=== PATIENT | female | born 1940 | race Caucasian/White ===

== ENCOUNTER 2021-03-04 15:23 | Inpatient (IN) | payer MEDICARE, MEDICAID ==
[2021-03-04 16:02] LABS: #Eosinphils 0.2 10x3/uL (0.0-0.5); #Monocytes 0.4 10x3/uL (0.0-1.1); #Neutrophils 4.4 10x3/uL (1.5-8.4); %Basophils 0.3 % (0.0-2.0); %Eosinophils 3.1 % (0.0-6.0); %Lymphocytes 25.3 % (18.0-47.0); %Monocytes 5.5 % (0.0-10.0); %Neutrophils 65.5 % (40.0-75.0); Hemoglobin 11.6 g/dL (12.0-15.5); Mean Corpuscular HGB CONC 30.9 g/dL (32.0-36.0); Mean Corpuscular Hemoglobin 26.3 pg (27.0-33.0); Mean Platelet Volume 9.1 fl (7.4-10.4); Platelet Count 228 10x3/uL (150-450); RBC Distribution Width 16.7 % (11.5-14.5); Red Blood Cell (RBC) Count 4.41 10x6/uL (3.90-5.03); White Blood Cell (WBC) Count 6.7 10x3/uL (3.5-10.5)
[2021-03-04 16:11] LABS: PTT 25.4 sec (22.0-33.0); Prothrombin Time 11.2 sec (9.5-12.1)
[2021-03-04 16:12] LABS: Anion Gap 16 mmol/L (10-20); BUN (Urea Nitrogen) 13 mg/dL (9.8-20.1); Calc. Creatinine Clearance 0 mL/min (70-130); Calcium 9.3 mg/dL (7.8-10.44); Carbon Dioxide 23 mmol/L (23-31); Chloride 107 mmol/L (98-107); Glucose 88 mg/dL (83-110); Potassium 3.7 mmol/L (3.5-5.1); Sodium 142 mmol/L (136-145)
[2021-03-04] MEDS ORDERED: Ondansetron PF 4 MG/2 ML Vial IVP PRN (21:40)
[2021-03-04] MEDS ORDERED: Calcium Carbonate 500 MG ChewTAB PO PRN ×2 (21:40→21:41)
[2021-03-04] MEDS ORDERED: Guaifenesin DM 100-10/5 ML UDCUP PO PRN (21:40)
[2021-03-04] MEDS ORDERED: Senokot S 8.6-50 MG TAB PO PRN (21:40)
[2021-03-04] MEDS ORDERED: hydrALAZINE 20 MG/ML VIAL SLOW IVP PRN (21:44)
[2021-03-04] MEDS ORDERED: HYDROcodone/Acetaminophen 5/325 mg Tablet ONE (23:23)
[2021-03-04] MEDS ORDERED: Nebivolol HCl 5 MG TAB PO SCH (23:30)
[2021-03-05] MEDS: Ipratropium Bromide 2.5 ml Neb NEB SCH ×2 (01:00→07:37)
[2021-03-05] MEDS: Acetaminophen 325 MG TAB PO PRN ×2 (01:09→19:59)
[2021-03-05] MEDS ORDERED: Pregabalin 50 MG CAP PO SCH ×2 (01:45→09:00)
[2021-03-05 02:07] LABS: Bilirubin Neg (Negative); Blood, Urine 150 (Negative); Clarity Slightly Cloudy (Clear); Glucose, Urine (Dipstick) Normal (Negative); Ketone, Urine Negative (Negative); Leukocyte 500 (Negative); Nitrite Positive (Negative); Protein, Urine (Dipstick) 100 mg/dl (Neg-Trace); Urobilinogen Normal mg/dL (Less than 2)
[2021-03-05 02:14] LABS: Bacteria/HPF 4+ HPF (None Seen); RBC/HPF 0-3 HPF (0-3); Squamous Epithelial 0-3 HPF (0-3); WBC/HPF 21-50 HPF (0-3)
[2021-03-05 02:19] VITALS: BMI 26.8
[2021-03-05] MEDS: HYDROcodone/Acetaminophen 5/325 mg Tablet PO PRN ×2 (02:56→09:33)
[2021-03-05 04:25] LABS: SARS-CoV-2 NAA Rapid Test Not Detected (NotDetected)
[2021-03-05] MEDS: Levothyroxine Sodium 125 MCG TAB PO SCH (05:51)
[2021-03-05] MEDS ORDERED: RANOLAZINE 1000 MG PO SCH (09:00)
[2021-03-05] MEDS: Clopidogrel Bisulfate 75 MG TAB PO SCH (09:31)
[2021-03-05] MEDS: Aspirin 81 mg Enteric Coated Tablet PO SCH (09:31)
[2021-03-05] MEDS: Losartan 25 MG TAB PO SCH (09:32)
[2021-03-05] MEDS: Calcium Carbonate 600 MG + Vit D TAB PO SCH (09:32)
[2021-03-05] MEDS: Enoxaparin Sodium 40 MG/0.4 ML SYRINGE SC SCH (09:33)
[2021-03-05] MEDS: Nebivolol HCl 5 MG TAB PO SCH (09:33)
[2021-03-05] MEDS: Nystatin Powder 15 GM BOT TOP SCH ×2 (10:50→21:00)
[2021-03-05] MEDS: Pregabalin 50 MG CAP PO SCH (19:58)
[2021-03-05] MEDS: Atorvastatin Calcium 40 MG TAB PO SCH (19:59)
[2021-03-06 04:33] LABS: #Monocytes 0.3 10x3/uL (0.0-1.1); #Neutrophils 12.7 10x3/uL (1.5-8.4); %Basophils 0.2 % (0.0-2.0); %Eosinophils 0.1 % (0.0-6.0); %Neutrophils 92.2 % (40.0-75.0); Hemoglobin 11.1 g/dL (12.0-15.5); Mean Corpuscular HGB CONC 30.7 g/dL (32.0-36.0); Mean Corpuscular Hemoglobin 26.6 pg (27.0-33.0); Mean Corpuscular Volume 86.6 fl (81.6-98.3); Mean Platelet Volume 9.7 fl (7.4-10.4); Platelet Count 155 10x3/uL (150-450); RBC Distribution Width 17.6 % (11.5-14.5); Red Blood Cell (RBC) Count 4.18 10x6/uL (3.90-5.03); White Blood Cell (WBC) Count 13.7 10x3/uL (3.5-10.5)
[2021-03-06 04:54] LABS: Anion Gap 19 mmol/L (10-20); BUN (Urea Nitrogen) 26 mg/dL (9.8-20.1); Calc. Creatinine Clearance 28 mL/min (70-130); Calcium 8.8 mg/dL (7.8-10.44); Carbon Dioxide 21 mmol/L (23-31); Chloride 104 mmol/L (98-107); Glucose 94 mg/dL (83-110); Potassium 4.6 mmol/L (3.5-5.1); Sodium 139 mmol/L (136-145)
[2021-03-06] MEDS: Acetaminophen 325 MG TAB PO PRN (05:53)
[2021-03-06] MEDS: Levothyroxine Sodium 125 MCG TAB PO SCH (06:07)
[2021-03-06] MEDS: Enoxaparin Sodium 40 MG/0.4 ML SYRINGE SC SCH (09:36)
[2021-03-06] MEDS: Pregabalin 50 MG CAP PO SCH ×2 (09:36→22:56)
[2021-03-06] MEDS: Clopidogrel Bisulfate 75 MG TAB PO SCH (09:37)
[2021-03-06] MEDS: Calcium Carbonate 600 MG + Vit D TAB PO SCH (09:37)
[2021-03-06] MEDS: Losartan 25 MG TAB PO SCH (09:37)
[2021-03-06] MEDS: Fish Oil 1,000 MG CAP PO SCH (09:37)
[2021-03-06] MEDS: Multivit, Therapeutic 1 TAB PO SCH (09:37)
[2021-03-06] MEDS: Nystatin Powder 15 GM BOT TOP SCH ×2 (09:43→22:55)
[2021-03-06] MEDS: Sodium Chloride 0.9% 1,000 ML IV SCH ×2 (10:58→16:33)
[2021-03-06] MEDS: Aspirin 81 mg Enteric Coated Tablet PO SCH (10:59)
[2021-03-06] MEDS: Nebivolol HCl 5 MG TAB PO SCH (11:07)
[2021-03-06] MEDS: HYDROcodone/Acetaminophen 5/325 mg Tablet PO PRN ×2 (12:39→22:56)
[2021-03-06] MEDS: Atorvastatin Calcium 40 MG TAB PO SCH (22:55)
[2021-03-07] MEDS: Acetaminophen 325 MG TAB PO PRN ×2 (05:18→15:49)
[2021-03-07] MEDS: Levothyroxine Sodium 125 MCG TAB PO SCH (05:18)
[2021-03-07] MEDS: Sodium Chloride 0.9% 1,000 ML IV SCH ×3 (05:19→14:18)
[2021-03-07 06:01] LABS: #Eosinphils 0.1 10x3/uL (0.0-0.5); #Monocytes 0.3 10x3/uL (0.0-1.1); #Neutrophils 6.4 10x3/uL (1.5-8.4); %Basophils 0.1 % (0.0-2.0); %Eosinophils 1.8 % (0.0-6.0); %Lymphocytes 12.3 % (18.0-47.0); %Monocytes 3.6 % (0.0-10.0); %Neutrophils 81.6 % (40.0-75.0); Hemoglobin 11.1 g/dL (12.0-15.5); Mean Corpuscular HGB CONC 31.2 g/dL (32.0-36.0); Mean Corpuscular Hemoglobin 26.9 pg (27.0-33.0); Mean Corpuscular Volume 86.2 fl (81.6-98.3); Mean Platelet Volume 10.5 fl (7.4-10.4); Platelet Count 107 10x3/uL (150-450); RBC Distribution Width 17.8 % (11.5-14.5); Red Blood Cell (RBC) Count 4.13 10x6/uL (3.90-5.03); White Blood Cell (WBC) Count 7.9 10x3/uL (3.5-10.5)
[2021-03-07 06:13] LABS: Anion Gap 17 mmol/L (10-20); BUN (Urea Nitrogen) 36 mg/dL (9.8-20.1); Calc. Creatinine Clearance 21 mL/min (70-130); Calcium 8.3 mg/dL (7.8-10.44); Carbon Dioxide 19 mmol/L (23-31); Chloride 102 mmol/L (98-107); Glucose 84 mg/dL (83-110); Magnesium 1.4 mg/dL (1.6-2.6); Potassium 4.1 mmol/L (3.5-5.1); Sodium 134 mmol/L (136-145)
[2021-03-07 08:46] LABS: Phosphorus 3.2 mg/dL (2.3-4.7)
[2021-03-07] MEDS ORDERED: Magnesium 2 GM/50 ML 2 GM in Premix Bag 1 BAG IVPB SCH (09:00)
[2021-03-07] MEDS: Aspirin 81 mg Enteric Coated Tablet PO SCH (09:07)
[2021-03-07] MEDS: Enoxaparin Sodium 40 MG/0.4 ML SYRINGE SC SCH (09:07)
[2021-03-07] MEDS: Fish Oil 1,000 MG CAP PO SCH (09:07)
[2021-03-07] MEDS: Clopidogrel Bisulfate 75 MG TAB PO SCH (09:08)
[2021-03-07] MEDS: Pregabalin 50 MG CAP PO SCH ×2 (09:08→21:43)
[2021-03-07] MEDS: Multivit, Therapeutic 1 TAB PO SCH (09:08)
[2021-03-07] MEDS: Losartan 25 MG TAB PO SCH (09:08)
[2021-03-07] MEDS: Nebivolol HCl 5 MG TAB PO SCH (09:08)
[2021-03-07] MEDS: Nystatin Powder 15 GM BOT TOP SCH ×2 (09:09→21:44)
[2021-03-07] MEDS: Calcium Carbonate 600 MG + Vit D TAB PO SCH (09:22)
[2021-03-07] MEDS ORDERED: Cefepime 2 GM in Sodium Chloride 0.9% 100 ML IVPB SCH (13:00)
[2021-03-07] MEDS: Atorvastatin Calcium 40 MG TAB PO SCH (21:43)
[2021-03-08] MEDS: Sodium Chloride 0.9% 1,000 ML IV SCH ×2 (00:55→08:53)
[2021-03-08] MEDS: Levothyroxine Sodium 125 MCG TAB PO SCH (06:09)
[2021-03-08 08:58] LABS: #Eosinphils 0.1 10x3/uL (0.0-0.5); #Monocytes 0.3 10x3/uL (0.0-1.1); #Neutrophils 3.8 10x3/uL (1.5-8.4); %Basophils 0.2 % (0.0-2.0); %Eosinophils 1.8 % (0.0-6.0); %Lymphocytes 16.9 % (18.0-47.0); %Monocytes 5.7 % (0.0-10.0); %Neutrophils 74.8 % (40.0-75.0); Hemoglobin 8.9 g/dL (12.0-15.5); Mean Corpuscular HGB CONC 31.7 g/dL (32.0-36.0); Mean Corpuscular Hemoglobin 27.1 pg (27.0-33.0); Mean Corpuscular Volume 85.7 fl (81.6-98.3); Mean Platelet Volume 10.6 fl (7.4-10.4); Platelet Count 96 10x3/uL (150-450); RBC Distribution Width 17.7 % (11.5-14.5); Red Blood Cell (RBC) Count 3.28 10x6/uL (3.90-5.03); White Blood Cell (WBC) Count 5.1 10x3/uL (3.5-10.5)
[2021-03-08 09:02] LABS: ALT (SGPT) 142 U/L (8-55); AST (SGOT) 38 U/L (5-34); Albumin 2.6 g/dL (3.4-4.8); Alkaline Phosphatase 157 U/L (40-110); Anion Gap 14 mmol/L (10-20); BUN (Urea Nitrogen) 43 mg/dL (9.8-20.1); Bilirubin, Total 0.4 mg/dL (0.2-1.2); Calc. Creatinine Clearance 17 mL/min (70-130); Calcium 8.7 mg/dL (7.8-10.44); Carbon Dioxide 22 mmol/L (23-31); Chloride 103 mmol/L (98-107); Globulin 2.9 g/dL (2.4-3.5); Glucose 98 mg/dL (83-110); Potassium 3.8 mmol/L (3.5-5.1); Protein, Total 5.5 g/dL (5.8-8.1); Sodium 135 mmol/L (136-145)
[2021-03-08] MEDS: Enoxaparin Sodium 40 MG/0.4 ML SYRINGE SC SCH (09:10)
[2021-03-08] MEDS: Pregabalin 50 MG CAP PO SCH ×2 (09:10→21:26)
[2021-03-08] MEDS: Calcium Carbonate 600 MG + Vit D TAB PO SCH (09:10)
[2021-03-08] MEDS: Nystatin Powder 15 GM BOT TOP SCH ×2 (09:11→21:40)
[2021-03-08] MEDS: Clopidogrel Bisulfate 75 MG TAB PO SCH (09:11)
[2021-03-08] MEDS: Nebivolol HCl 5 MG TAB PO SCH (09:11)
[2021-03-08] MEDS: Multivit, Therapeutic 1 TAB PO SCH (09:11)
[2021-03-08] MEDS: Fish Oil 1,000 MG CAP PO SCH (09:11)
[2021-03-08] MEDS: Aspirin 81 mg Enteric Coated Tablet PO SCH (09:11)
[2021-03-08] MEDS ORDERED: Lactated Ringer's 500 ML IV SCH (12:45)
[2021-03-08] MEDS ORDERED: Cefepime 1 GM in Sodium Chloride 0.9% 100 ML IVPB SCH (13:00)
[2021-03-08 13:02] LABS: Bilirubin Neg (Negative); Blood, Urine 250 (Negative); Clarity Cloudy (Clear); Glucose, Urine (Dipstick) Normal (Negative); Ketone, Urine 5 mg/dL (Negative); Protein, Urine (Dipstick) 500 mg/dl (Neg-Trace)
[2021-03-08 13:16] LABS: Leukocyte Unable to Interpret (Negative); Nitrite Unable to Interpret (Negative)
[2021-03-08 13:20] LABS: RBC/HPF Greater than 50 HPF (0-3)
[2021-03-08 13:22] LABS: Bacteria/HPF 1+ HPF (None Seen)
[2021-03-08 13:32] LABS: Hemoglobin 8.6 g/dL (12.0-15.5); Mean Corpuscular HGB CONC 31.6 g/dL (32.0-36.0); Mean Corpuscular Volume 85.3 fl (81.6-98.3); Mean Platelet Volume 11.5 fl (7.4-10.4); Platelet Count 99 10x3/uL (150-450); RBC Distribution Width 17.6 % (11.5-14.5); Red Blood Cell (RBC) Count 3.19 10x6/uL (3.90-5.03); White Blood Cell (WBC) Count 4.9 10x3/uL (3.5-10.5)
[2021-03-08] MEDS: Acetaminophen 325 MG TAB PO PRN (15:15)
[2021-03-08 16:34] LABS: Hep C IgG Ab Non-Reactive (NonReactive); Hep C Index 0.07 S/CO (0-0.79)
[2021-03-08] MEDS: Atorvastatin Calcium 40 MG TAB PO SCH (21:27)
[2021-03-08] MEDS: Lactated Ringer's 1,000 ML IV SCH ×3 (21:28→22:39)
[2021-03-09 04:51] LABS: #Eosinphils 0.2 10x3/uL (0.0-0.5); #Monocytes 0.4 10x3/uL (0.0-1.1); #Neutrophils 3.4 10x3/uL (1.5-8.4); %Basophils 0.2 % (0.0-2.0); %Lymphocytes 18.5 % (18.0-47.0); %Monocytes 8.2 % (0.0-10.0); %Neutrophils 68.5 % (40.0-75.0); Hemoglobin 8.8 g/dL (12.0-15.5); Mean Corpuscular HGB CONC 31.9 g/dL (32.0-36.0); Mean Corpuscular Volume 84.7 fl (81.6-98.3); Platelet Count 99 10x3/uL (150-450); RBC Distribution Width 17.5 % (11.5-14.5); Red Blood Cell (RBC) Count 3.26 10x6/uL (3.90-5.03)
[2021-03-09 05:03] LABS: ALT (SGPT) 96 U/L (8-55); AST (SGOT) 20 U/L (5-34); Albumin 2.5 g/dL (3.4-4.8); Alkaline Phosphatase 152 U/L (40-110); Anion Gap 16 mmol/L (10-20); BUN (Urea Nitrogen) 46 mg/dL (9.8-20.1); Bilirubin, Total 0.3 mg/dL (0.2-1.2); Calc. Creatinine Clearance 17 mL/min (70-130); Calcium 8.6 mg/dL (7.8-10.44); Carbon Dioxide 19 mmol/L (23-31); Chloride 102 mmol/L (98-107); Globulin 3.1 g/dL (2.4-3.5); Glucose 114 mg/dL (83-110); Potassium 3.8 mmol/L (3.5-5.1); Protein, Total 5.6 g/dL (5.8-8.1); Sodium 133 mmol/L (136-145)
[2021-03-09] MEDS: Levothyroxine Sodium 125 MCG TAB PO SCH (05:46)
[2021-03-09] MEDS ORDERED: Sodium Bicarbonate 2.5 MEQ/5 ML VIAL ONE (09:00)
[2021-03-09] MEDS ORDERED: Lidocaine 1% PF 5 ML VIAL ONE (09:00)
[2021-03-09] MEDS: cefTRIAXone\\ROCEPHIN 2 GM in Sodium Chloride 0.9% 100 ML IVPB SCH (11:30)
[2021-03-09] MEDS: Calcium Carbonate 600 MG + Vit D TAB PO SCH (11:30)
[2021-03-09] MEDS: Clopidogrel Bisulfate 75 MG TAB PO SCH (11:30)
[2021-03-09] MEDS: Aspirin 81 mg Enteric Coated Tablet PO SCH (11:30)
[2021-03-09] MEDS: Fish Oil 1,000 MG CAP PO SCH (11:30)
[2021-03-09] MEDS: Multivit, Therapeutic 1 TAB PO SCH (11:31)
[2021-03-09] MEDS: Nebivolol HCl 5 MG TAB PO SCH (11:31)
[2021-03-09] MEDS: Pregabalin 50 MG CAP PO SCH ×2 (11:31→21:25)
[2021-03-09] MEDS: Nystatin Powder 15 GM BOT TOP SCH ×2 (11:31→21:26)
[2021-03-09] MEDS: Lactated Ringer's 1,000 ML IV SCH (11:32)
[2021-03-09] MEDS: Acetaminophen 325 MG TAB PO PRN ×2 (11:53→22:07)
[2021-03-09] MEDS: Atorvastatin Calcium 40 MG TAB PO SCH (21:25)
[2021-03-09] MEDS ORDERED: Cefepime 1 GM in Sodium Chloride 0.9% 100 ML IVPB SCH (22:00)
[2021-03-09] MEDS: Melatonin 3 MG TAB PO PRN (22:06)
[2021-03-10] MEDS ORDERED: Amlodipine 5 MG TAB ONE (00:52)
[2021-03-10] MEDS ORDERED: Amlodipine 5 MG TAB PO SCH (01:30)
[2021-03-10 04:47] LABS: ALT (SGPT) 70 U/L (8-55); AST (SGOT) 18 U/L (5-34); Albumin 2.5 g/dL (3.4-4.8); Alkaline Phosphatase 131 U/L (40-110); Anion Gap 12 mmol/L (10-20); BUN (Urea Nitrogen) 47 mg/dL (9.8-20.1); Bilirubin, Total 0.2 mg/dL (0.2-1.2); Calc. Creatinine Clearance 18 mL/min (70-130); Calcium 8.7 mg/dL (7.8-10.44); Carbon Dioxide 24 mmol/L (23-31); Chloride 99 mmol/L (98-107); Glucose 114 mg/dL (83-110); Potassium 4.3 mmol/L (3.5-5.1); Protein, Total 5.5 g/dL (5.8-8.1); Sodium 131 mmol/L (136-145)
[2021-03-10 04:47] LABS: #Eosinphils 0.2 10x3/uL (0.0-0.5); #Monocytes 0.3 10x3/uL (0.0-1.1); #Neutrophils 2.2 10x3/uL (1.5-8.4); %Eosinophils 5.9 % (0.0-6.0); %Lymphocytes 27.1 % (18.0-47.0); %Monocytes 8.5 % (0.0-10.0); %Neutrophils 58.2 % (40.0-75.0); Hemoglobin 8.4 g/dL (12.0-15.5); Mean Corpuscular HGB CONC 31.9 g/dL (32.0-36.0); Mean Corpuscular Hemoglobin 26.9 pg (27.0-33.0); Mean Corpuscular Volume 84.3 fl (81.6-98.3); Mean Platelet Volume 10.5 fl (7.4-10.4); Platelet Count 91 10x3/uL (150-450); RBC Distribution Width 17.2 % (11.5-14.5); Red Blood Cell (RBC) Count 3.12 10x6/uL (3.90-5.03); White Blood Cell (WBC) Count 3.8 10x3/uL (3.5-10.5)
[2021-03-10] MEDS: Levothyroxine Sodium 125 MCG TAB PO SCH (06:30)
[2021-03-10] MEDS: Nebivolol HCl 5 MG TAB PO SCH (07:15)
[2021-03-10] MEDS: Pregabalin 50 MG CAP PO SCH ×2 (08:58→21:23)
[2021-03-10] MEDS: Fish Oil 1,000 MG CAP PO SCH (08:58)
[2021-03-10] MEDS: Multivit, Therapeutic 1 TAB PO SCH (08:58)
[2021-03-10] MEDS: Aspirin 81 mg Enteric Coated Tablet PO SCH (08:58)
[2021-03-10] MEDS: Calcium Carbonate 600 MG + Vit D TAB PO SCH (08:58)
[2021-03-10] MEDS: Clopidogrel Bisulfate 75 MG TAB PO SCH (08:58)
[2021-03-10] MEDS: Nystatin Powder 15 GM BOT TOP SCH ×2 (08:59→21:24)
[2021-03-10] MEDS: cefTRIAXone\\ROCEPHIN 2 GM in Sodium Chloride 0.9% 100 ML IVPB SCH (08:59)
[2021-03-10 10:20] LABS: Hep B Surface AG-Rflx Sendout Negative (Negative); Hepatitis B Core Total Negative (Negative); Hepatitis B Surface AB-Sendout Non Reactive (.)
[2021-03-10] MEDS: Acetaminophen 325 MG TAB PO PRN ×2 (12:09→22:04)
[2021-03-10] MEDS ORDERED: Polyethylene Glycol 3350 17 GM Packet PO PRN (13:48)
[2021-03-10] MEDS: Atorvastatin Calcium 40 MG TAB PO SCH (21:23)
[2021-03-10] MEDS: Melatonin 3 MG TAB PO PRN (22:06)
[2021-03-11 04:31] LABS: ALT (SGPT) 55 U/L (8-55); AST (SGOT) 17 U/L (5-34); Albumin 2.6 g/dL (3.4-4.8); Alkaline Phosphatase 122 U/L (40-110); Anion Gap 14 mmol/L (10-20); BUN (Urea Nitrogen) 49 mg/dL (9.8-20.1); Bilirubin, Total 0.2 mg/dL (0.2-1.2); Calc. Creatinine Clearance 19 mL/min (70-130); Calcium 8.7 mg/dL (7.8-10.44); Carbon Dioxide 23 mmol/L (23-31); Chloride 104 mmol/L (98-107); Globulin 2.9 g/dL (2.4-3.5); Glucose 105 mg/dL (83-110); Potassium 4.5 mmol/L (3.5-5.1); Protein, Total 5.5 g/dL (5.8-8.1); Sodium 136 mmol/L (136-145)
[2021-03-11 04:35] LABS: #Eosinphils 0.2 10x3/uL (0.0-0.5); #Monocytes 0.4 10x3/uL (0.0-1.1); #Neutrophils 2.7 10x3/uL (1.5-8.4); %Basophils 0.2 % (0.0-2.0); %Eosinophils 4.1 % (0.0-6.0); %Monocytes 8.5 % (0.0-10.0); %Neutrophils 62.7 % (40.0-75.0); Hemoglobin 8.5 g/dL (12.0-15.5); Mean Corpuscular HGB CONC 31.8 g/dL (32.0-36.0); Mean Corpuscular Hemoglobin 27.1 pg (27.0-33.0); Mean Platelet Volume 10.3 fl (7.4-10.4); Platelet Count 101 10x3/uL (150-450); RBC Distribution Width 17.2 % (11.5-14.5); Red Blood Cell (RBC) Count 3.14 10x6/uL (3.90-5.03); White Blood Cell (WBC) Count 4.4 10x3/uL (3.5-10.5)
[2021-03-11] MEDS: Levothyroxine Sodium 125 MCG TAB PO SCH (05:31)
[2021-03-11] MEDS: Nystatin Powder 15 GM BOT TOP SCH ×2 (08:47→21:36)
[2021-03-11] MEDS: Calcium Carbonate 600 MG + Vit D TAB PO SCH (08:47)
[2021-03-11] MEDS: Nebivolol HCl 5 MG TAB PO SCH (08:47)
[2021-03-11] MEDS: Aspirin 81 mg Enteric Coated Tablet PO SCH (08:47)
[2021-03-11] MEDS: Clopidogrel Bisulfate 75 MG TAB PO SCH (08:47)
[2021-03-11] MEDS: Fish Oil 1,000 MG CAP PO SCH (08:47)
[2021-03-11] MEDS: Pregabalin 50 MG CAP PO SCH ×2 (08:47→21:33)
[2021-03-11] MEDS: cefTRIAXone\\ROCEPHIN 2 GM in Sodium Chloride 0.9% 100 ML IVPB SCH (08:47)
[2021-03-11] MEDS: Multivit, Therapeutic 1 TAB PO SCH (08:47)
[2021-03-11] MEDS: Fluticasone Propionate Nasal Spray 16 gm Bottle NASAL SCH (13:09)
[2021-03-11] MEDS: Acetaminophen 325 MG TAB PO PRN (14:43)
[2021-03-11] MEDS: Atorvastatin Calcium 40 MG TAB PO SCH (21:33)
[2021-03-12] MEDS: hydrALAZINE 20 MG/ML VIAL SLOW IVP PRN (01:21)
[2021-03-12] MEDS: Acetaminophen 325 MG TAB PO PRN (02:42)
[2021-03-12] MEDS: Melatonin 3 MG TAB PO PRN (03:43)
[2021-03-12 06:10] LABS: #Eosinphils 0.1 10x3/uL (0.0-0.5); #Monocytes 0.4 10x3/uL (0.0-1.1); #Neutrophils 6.5 10x3/uL (1.5-8.4); %Basophils 0.1 % (0.0-2.0); %Eosinophils 0.9 % (0.0-6.0); %Lymphocytes 8.8 % (18.0-47.0); %Monocytes 5.6 % (0.0-10.0); %Neutrophils 84.2 % (40.0-75.0); Hemoglobin 8.5 g/dL (12.0-15.5); Mean Corpuscular HGB CONC 31.1 g/dL (32.0-36.0); Mean Corpuscular Hemoglobin 26.6 pg (27.0-33.0); Mean Corpuscular Volume 85.3 fl (81.6-98.3); Mean Platelet Volume 11.1 fl (7.4-10.4); Platelet Count 121 10x3/uL (150-450); RBC Distribution Width 17.2 % (11.5-14.5); White Blood Cell (WBC) Count 7.7 10x3/uL (3.5-10.5)
[2021-03-12 06:18] LABS: ALT (SGPT) 46 U/L (8-55); AST (SGOT) 21 U/L (5-34); Albumin 2.8 g/dL (3.4-4.8); Alkaline Phosphatase 125 U/L (40-110); Anion Gap 16 mmol/L (10-20); BUN (Urea Nitrogen) 44 mg/dL (9.8-20.1); Bilirubin, Total 0.3 mg/dL (0.2-1.2); Calc. Creatinine Clearance 22 mL/min (70-130); Calcium 8.6 mg/dL (7.8-10.44); Carbon Dioxide 22 mmol/L (23-31); Chloride 102 mmol/L (98-107); Globulin 3.2 g/dL (2.4-3.5); Glucose 122 mg/dL (83-110); Potassium 4.2 mmol/L (3.5-5.1); Sodium 136 mmol/L (136-145)
[2021-03-12] MEDS: Levothyroxine Sodium 125 MCG TAB PO SCH (06:24)
[2021-03-12] MEDS: Acetaminophen 500 MG TAB PO PRN (06:30)
[2021-03-12] MEDS: Fish Oil 1,000 MG CAP PO SCH (09:41)
[2021-03-12] MEDS: Calcium Carbonate 600 MG + Vit D TAB PO SCH (09:41)
[2021-03-12] MEDS: cefTRIAXone\\ROCEPHIN 2 GM in Sodium Chloride 0.9% 100 ML IVPB SCH (09:42)
[2021-03-12] MEDS: Pregabalin 50 MG CAP PO SCH ×2 (09:42→21:00)
[2021-03-12] MEDS: Aspirin 81 mg Enteric Coated Tablet PO SCH (09:42)
[2021-03-12] MEDS: Nebivolol HCl 5 MG TAB PO SCH (09:43)
[2021-03-12] MEDS: NIFEdipine XL 60 MG TAB PO SCH (09:43)
[2021-03-12] MEDS: Nystatin Powder 15 GM BOT TOP SCH ×2 (09:43→21:03)
[2021-03-12] MEDS: Multivit, Therapeutic 1 TAB PO SCH (09:43)
[2021-03-12] MEDS: Clopidogrel Bisulfate 75 MG TAB PO SCH (09:43)
[2021-03-12] MEDS: Fluticasone Propionate Nasal Spray 16 gm Bottle NASAL SCH (14:28)
[2021-03-12] MEDS: traMADol HCl 50 MG TAB PO PRN (17:12)
[2021-03-12] MEDS: Atorvastatin Calcium 40 MG TAB PO SCH (21:01)
[2021-03-13] MEDS: traMADol HCl 50 MG TAB PO PRN ×2 (00:47→09:05)
[2021-03-13] MEDS: hydrALAZINE 20 MG/ML VIAL SLOW IVP PRN (05:10)
[2021-03-13] MEDS: Levothyroxine Sodium 125 MCG TAB PO SCH (05:14)
[2021-03-13 06:01] LABS: #Eosinphils 0.3 10x3/uL (0.0-0.5); #Monocytes 0.5 10x3/uL (0.0-1.1); #Neutrophils 4.7 10x3/uL (1.5-8.4); %Basophils 0.4 % (0.0-2.0); %Lymphocytes 20.9 % (18.0-47.0); %Monocytes 7.1 % (0.0-10.0); %Neutrophils 66.9 % (40.0-75.0); Hemoglobin 9.2 g/dL (12.0-15.5); Mean Corpuscular HGB CONC 32.6 g/dL (32.0-36.0); Mean Corpuscular Hemoglobin 27.1 pg (27.0-33.0); Mean Corpuscular Volume 83.2 fl (81.6-98.3); Mean Platelet Volume 10.5 fl (7.4-10.4); Platelet Count 149 10x3/uL (150-450); RBC Distribution Width 17.2 % (11.5-14.5); Red Blood Cell (RBC) Count 3.39 10x6/uL (3.90-5.03); White Blood Cell (WBC) Count 7.1 10x3/uL (3.5-10.5)
[2021-03-13 06:11] LABS: Anion Gap 14 mmol/L (10-20); BUN (Urea Nitrogen) 39 mg/dL (9.8-20.1); Calc. Creatinine Clearance 25 mL/min (70-130); Calcium 8.6 mg/dL (7.8-10.44); Carbon Dioxide 23 mmol/L (23-31); Chloride 103 mmol/L (98-107); Glucose 84 mg/dL (83-110); Potassium 5.1 mmol/L (3.5-5.1); Sodium 135 mmol/L (136-145)
[2021-03-13] MEDS: Fish Oil 1,000 MG CAP PO SCH (08:55)
[2021-03-13] MEDS: NIFEdipine XL 60 MG TAB PO SCH (08:55)
[2021-03-13] MEDS: Pregabalin 50 MG CAP PO SCH ×2 (08:55→21:23)
[2021-03-13] MEDS: Clopidogrel Bisulfate 75 MG TAB PO SCH (08:55)
[2021-03-13] MEDS: Multivit, Therapeutic 1 TAB PO SCH (08:55)
[2021-03-13] MEDS: Calcium Carbonate 600 MG + Vit D TAB PO SCH (08:55)
[2021-03-13] MEDS: Aspirin 81 mg Enteric Coated Tablet PO SCH (08:55)
[2021-03-13] MEDS: Nebivolol HCl 5 MG TAB PO SCH (08:55)
[2021-03-13] MEDS: cefTRIAXone\\ROCEPHIN 2 GM in Sodium Chloride 0.9% 100 ML IVPB SCH (08:56)
[2021-03-13] MEDS: Nystatin Powder 15 GM BOT TOP SCH ×2 (08:56→22:20)
[2021-03-13] MEDS: Fluticasone Propionate Nasal Spray 16 gm Bottle NASAL SCH (13:26)
[2021-03-13] MEDS: Atorvastatin Calcium 40 MG TAB PO SCH (21:23)
[2021-03-14] MEDS: Levothyroxine Sodium 125 MCG TAB PO SCH (05:44)
[2021-03-14 07:36] LABS: Anion Gap 13 mmol/L (10-20); BUN (Urea Nitrogen) 39 mg/dL (9.8-20.1); Calc. Creatinine Clearance 23 mL/min (70-130); Calcium 8.7 mg/dL (7.8-10.44); Carbon Dioxide 24 mmol/L (23-31); Chloride 104 mmol/L (98-107); Glucose 77 mg/dL (83-110); Potassium 5.2 mmol/L (3.5-5.1); Sodium 136 mmol/L (136-145)
[2021-03-14] MEDS: Multivit, Therapeutic 1 TAB PO SCH (09:21)
[2021-03-14] MEDS: Fish Oil 1,000 MG CAP PO SCH (09:21)
[2021-03-14] MEDS: Calcium Carbonate 600 MG + Vit D TAB PO SCH (09:21)
[2021-03-14] MEDS: Nebivolol HCl 5 MG TAB PO SCH (09:21)
[2021-03-14] MEDS: NIFEdipine XL 60 MG TAB PO SCH (09:21)
[2021-03-14] MEDS: Clopidogrel Bisulfate 75 MG TAB PO SCH (09:21)
[2021-03-14] MEDS: Aspirin 81 mg Enteric Coated Tablet PO SCH (09:21)
[2021-03-14] MEDS: Pregabalin 50 MG CAP PO SCH ×2 (09:21→20:39)
[2021-03-14] MEDS: Nystatin Powder 15 GM BOT TOP SCH ×2 (09:21→23:39)
[2021-03-14] MEDS: cefTRIAXone\\ROCEPHIN 2 GM in Sodium Chloride 0.9% 100 ML IVPB SCH (09:41)
[2021-03-14] MEDS: traMADol HCl 50 MG TAB PO PRN (09:42)
[2021-03-14] MEDS: Fluticasone Propionate Nasal Spray 16 gm Bottle NASAL SCH (12:35)
[2021-03-14] MEDS: Atorvastatin Calcium 40 MG TAB PO SCH (20:39)
[2021-03-15] MEDS: Levothyroxine Sodium 125 MCG TAB PO SCH (06:12)
[2021-03-15] MEDS: traMADol HCl 50 MG TAB PO PRN ×2 (06:19→22:18)
[2021-03-15 08:39] LABS: Anion Gap 14 mmol/L (10-20); BUN (Urea Nitrogen) 37 mg/dL (9.8-20.1); Calc. Creatinine Clearance 25 mL/min (70-130); Calcium 8.8 mg/dL (7.8-10.44); Carbon Dioxide 25 mmol/L (23-31); Chloride 100 mmol/L (98-107); Glucose 84 mg/dL (83-110); Potassium 5.1 mmol/L (3.5-5.1); Sodium 134 mmol/L (136-145)
[2021-03-15] MEDS: Clopidogrel Bisulfate 75 MG TAB PO SCH (10:54)
[2021-03-15] MEDS: Fish Oil 1,000 MG CAP PO SCH (10:54)
[2021-03-15] MEDS: Multivit, Therapeutic 1 TAB PO SCH (10:54)
[2021-03-15] MEDS: NIFEdipine XL 60 MG TAB PO SCH (10:54)
[2021-03-15] MEDS: Pregabalin 50 MG CAP PO SCH ×2 (10:54→22:17)
[2021-03-15] MEDS: cefTRIAXone\\ROCEPHIN 2 GM in Sodium Chloride 0.9% 100 ML IVPB SCH (10:55)
[2021-03-15] MEDS: Calcium Carbonate 600 MG + Vit D TAB PO SCH (10:55)
[2021-03-15] MEDS: Nebivolol HCl 5 MG TAB PO SCH (10:55)
[2021-03-15] MEDS: Nystatin Powder 15 GM BOT TOP SCH ×2 (10:56→22:20)
[2021-03-15] MEDS: Fluticasone Propionate Nasal Spray 16 gm Bottle NASAL SCH (14:37)
[2021-03-15] MEDS: Aspirin 81 mg Enteric Coated Tablet PO SCH (14:37)
[2021-03-15] MEDS: Atorvastatin Calcium 40 MG TAB PO SCH (22:16)
[2021-03-16] MEDS: Melatonin 3 MG TAB PO PRN ×2 (01:17→21:45)
[2021-03-16] MEDS: Levothyroxine Sodium 125 MCG TAB PO SCH (05:02)
[2021-03-16 07:07] LABS: Anion Gap 16 mmol/L (10-20); BUN (Urea Nitrogen) 34 mg/dL (9.8-20.1); Calc. Creatinine Clearance 24 mL/min (70-130); Calcium 8.8 mg/dL (7.8-10.44); Carbon Dioxide 25 mmol/L (23-31); Chloride 99 mmol/L (98-107); Glucose 95 mg/dL (83-110); Sodium 135 mmol/L (136-145)
[2021-03-16] MEDS: Clopidogrel Bisulfate 75 MG TAB PO SCH (08:32)
[2021-03-16] MEDS: Multivit, Therapeutic 1 TAB PO SCH (08:32)
[2021-03-16] MEDS: Fish Oil 1,000 MG CAP PO SCH (08:32)
[2021-03-16] MEDS: Aspirin 81 mg Enteric Coated Tablet PO SCH (08:32)
[2021-03-16] MEDS: Calcium Carbonate 600 MG + Vit D TAB PO SCH (08:32)
[2021-03-16] MEDS: NIFEdipine XL 60 MG TAB PO SCH (08:32)
[2021-03-16] MEDS: Pregabalin 50 MG CAP PO SCH ×2 (08:32→21:46)
[2021-03-16] MEDS: cefTRIAXone\\ROCEPHIN 2 GM in Sodium Chloride 0.9% 100 ML IVPB SCH (08:33)
[2021-03-16] MEDS: Nystatin Powder 15 GM BOT TOP SCH (08:33)
[2021-03-16] MEDS: Nebivolol HCl 5 MG TAB PO SCH (08:50)
[2021-03-16] MEDS: traMADol HCl 50 MG TAB PO PRN ×2 (12:20→21:46)
[2021-03-16] MEDS: Fluticasone Propionate Nasal Spray 16 gm Bottle NASAL SCH (12:21)
[2021-03-16] MEDS: Acetaminophen 500 MG TAB PO PRN (16:14)
[2021-03-16] MEDS: Atorvastatin Calcium 40 MG TAB PO SCH (21:45)
[2021-03-17] MEDS: Nystatin Powder 15 GM BOT TOP SCH ×2 (03:18→09:08)
[2021-03-17 05:26] LABS: Anion Gap 18 mmol/L (10-20); BUN (Urea Nitrogen) 33 mg/dL (9.8-20.1); Calc. Creatinine Clearance 24 mL/min (70-130); Calcium 8.8 mg/dL (7.8-10.44); Carbon Dioxide 20 mmol/L (23-31); Chloride 103 mmol/L (98-107); Glucose 99 mg/dL (83-110); Sodium 134 mmol/L (136-145)
[2021-03-17] MEDS: Levothyroxine Sodium 125 MCG TAB PO SCH (06:35)
[2021-03-17] MEDS: cefTRIAXone\\ROCEPHIN 2 GM in Sodium Chloride 0.9% 100 ML IVPB SCH (09:05)
[2021-03-17] MEDS: Pregabalin 50 MG CAP PO SCH ×2 (09:07→21:34)
[2021-03-17] MEDS: Clopidogrel Bisulfate 75 MG TAB PO SCH (09:07)
[2021-03-17] MEDS: Calcium Carbonate 600 MG + Vit D TAB PO SCH (09:07)
[2021-03-17] MEDS: Aspirin 81 mg Enteric Coated Tablet PO SCH (09:07)
[2021-03-17] MEDS: traMADol HCl 50 MG TAB PO PRN (09:07)
[2021-03-17] MEDS: Fish Oil 1,000 MG CAP PO SCH (09:07)
[2021-03-17] MEDS: Multivit, Therapeutic 1 TAB PO SCH (09:08)
[2021-03-17] MEDS: Lactated Ringer's 1,000 ML IV SCH ×2 (09:08→09:44)
[2021-03-17] MEDS: NIFEdipine XL 90 MG TAB PO SCH (09:11)
[2021-03-17] MEDS: Nebivolol HCl 5 MG TAB PO SCH (09:11)
[2021-03-17] MEDS: Sodium Chloride 0.9% 1,000 ML IV SCH (11:36)
[2021-03-17] MEDS: Fluticasone Propionate Nasal Spray 16 gm Bottle NASAL SCH (13:23)
[2021-03-17 14:59] LABS: Anion Gap 17 mmol/L (10-20); BUN (Urea Nitrogen) 29 mg/dL (9.8-20.1); Calc. Creatinine Clearance 25 mL/min (70-130); Carbon Dioxide 22 mmol/L (23-31); Chloride 97 mmol/L (98-107); Glucose 99 mg/dL (83-110); Sodium 131 mmol/L (136-145)
[2021-03-17 15:36] LABS: Creatinine, Urine 55.36 mg/dL (47-110)
[2021-03-17] MEDS: LOKELMA 10 GM PACKET PO SCH ×2 (16:10→21:35)
[2021-03-17 17:06] LABS: Anion Gap 15 mmol/L (10-20); BUN (Urea Nitrogen) 29 mg/dL (9.8-20.1); Calc. Creatinine Clearance 24 mL/min (70-130); Calcium 8.7 mg/dL (7.8-10.44); Carbon Dioxide 26 mmol/L (23-31); Chloride 97 mmol/L (98-107); Glucose 125 mg/dL (83-110); Potassium 4.7 mmol/L (3.5-5.1); Sodium 133 mmol/L (136-145)
[2021-03-17] MEDS: Atorvastatin Calcium 40 MG TAB PO SCH (21:34)
[2021-03-17] MEDS: Melatonin 3 MG TAB PO PRN (21:47)
[2021-03-18] MEDS: Levothyroxine Sodium 125 MCG TAB PO SCH (06:00)
[2021-03-18 06:38] LABS: Anion Gap 14 mmol/L (10-20); BUN (Urea Nitrogen) 26 mg/dL (9.8-20.1); Calc. Creatinine Clearance 24 mL/min (70-130); Calcium 8.3 mg/dL (7.8-10.44); Carbon Dioxide 25 mmol/L (23-31); Chloride 100 mmol/L (98-107); Glucose 94 mg/dL (83-110); Sodium 135 mmol/L (136-145)
[2021-03-18 06:40] LABS: Iron 11 ug/dL (50-170); Iron Binding Capacity, Total 186 mcg/dL (265-497)
[2021-03-18 06:57] LABS: Ferritin 187.03 ng/mL (10-291)
[2021-03-18] MEDS: Nystatin Powder 15 GM BOT TOP SCH ×3 (08:29→20:21)
[2021-03-18] MEDS: Sodium Chloride 0.9% 1,000 ML IV SCH ×2 (08:29→10:36)
[2021-03-18] MEDS: cefTRIAXone\\ROCEPHIN 2 GM in Sodium Chloride 0.9% 100 ML IVPB SCH (10:34)
[2021-03-18] MEDS: Calcium Carbonate 600 MG + Vit D TAB PO SCH (10:34)
[2021-03-18] MEDS: NIFEdipine XL 90 MG TAB PO SCH (10:35)
[2021-03-18] MEDS: Multivit, Therapeutic 1 TAB PO SCH (10:35)
[2021-03-18] MEDS: Aspirin 81 mg Enteric Coated Tablet PO SCH (10:35)
[2021-03-18] MEDS: Fish Oil 1,000 MG CAP PO SCH (10:35)
[2021-03-18] MEDS: Nebivolol HCl 5 MG TAB PO SCH (10:35)
[2021-03-18] MEDS: Pregabalin 50 MG CAP PO SCH ×2 (10:35→20:19)
[2021-03-18] MEDS: Clopidogrel Bisulfate 75 MG TAB PO SCH (10:35)
[2021-03-18 11:17] LABS: Vitamin D, 25 Hydroxy 25.4 ng/ml (> 30.0)
[2021-03-18] MEDS: Fluticasone Propionate Nasal Spray 16 gm Bottle NASAL SCH (12:40)
[2021-03-18] MEDS: Acetaminophen 500 MG TAB PO PRN (17:34)
[2021-03-18] MEDS: Atorvastatin Calcium 40 MG TAB PO SCH (20:19)
[2021-03-18] MEDS: Melatonin 3 MG TAB PO PRN (20:20)
[2021-03-19 05:17] LABS: Anion Gap 14 mmol/L (10-20); BUN (Urea Nitrogen) 21 mg/dL (9.8-20.1); Calc. Creatinine Clearance 25 mL/min (70-130); Calcium 8.5 mg/dL (7.8-10.44); Carbon Dioxide 26 mmol/L (23-31); Chloride 102 mmol/L (98-107); Glucose 117 mg/dL (83-110); Potassium 3.7 mmol/L (3.5-5.1); Sodium 138 mmol/L (136-145)
[2021-03-19] MEDS: Sodium Chloride 0.9% 1,000 ML IV SCH (05:51)
[2021-03-19] MEDS: Levothyroxine Sodium 125 MCG TAB PO SCH (05:52)
[2021-03-19] MEDS: Nystatin Powder 15 GM BOT TOP SCH ×2 (09:55→21:10)
[2021-03-19] MEDS: cefTRIAXone\\ROCEPHIN 2 GM in Sodium Chloride 0.9% 100 ML IVPB SCH (09:55)
[2021-03-19] MEDS: Aspirin 81 mg Enteric Coated Tablet PO SCH (09:55)
[2021-03-19] MEDS: Fish Oil 1,000 MG CAP PO SCH (09:55)
[2021-03-19] MEDS: Nebivolol HCl 5 MG TAB PO SCH (09:55)
[2021-03-19] MEDS: Clopidogrel Bisulfate 75 MG TAB PO SCH (09:55)
[2021-03-19] MEDS: Calcium Carbonate 600 MG + Vit D TAB PO SCH (09:55)
[2021-03-19] MEDS: NIFEdipine XL 90 MG TAB PO SCH (09:55)
[2021-03-19] MEDS: Multivit, Therapeutic 1 TAB PO SCH (09:55)
[2021-03-19] MEDS: Pregabalin 50 MG CAP PO SCH ×2 (09:56→21:09)
[2021-03-19] MEDS: Fluticasone Propionate Nasal Spray 16 gm Bottle NASAL SCH (13:28)
[2021-03-19] MEDS: Atorvastatin Calcium 40 MG TAB PO SCH (21:09)
[2021-03-19] MEDS: Melatonin 3 MG TAB PO PRN (21:17)
[2021-03-20] MEDS: hydrALAZINE 20 MG/ML VIAL SLOW IVP PRN (00:39)
[2021-03-20 05:59] LABS: Anion Gap 18 mmol/L (10-20); BUN (Urea Nitrogen) 18 mg/dL (9.8-20.1); Calc. Creatinine Clearance 28 mL/min (70-130); Calcium 8.5 mg/dL (7.8-10.44); Carbon Dioxide 20 mmol/L (23-31); Chloride 105 mmol/L (98-107); Glucose 113 mg/dL (83-110); Potassium 3.5 mmol/L (3.5-5.1); Sodium 139 mmol/L (136-145)
[2021-03-20] MEDS: Calcium Carbonate 600 MG + Vit D TAB PO SCH (08:43)
[2021-03-20] MEDS: Aspirin 81 mg Enteric Coated Tablet PO SCH (08:43)
[2021-03-20] MEDS: NIFEdipine XL 90 MG TAB PO SCH (08:43)
[2021-03-20] MEDS: Pregabalin 50 MG CAP PO SCH (08:43)
[2021-03-20] MEDS: Nebivolol HCl 5 MG TAB PO SCH (08:43)
[2021-03-20] MEDS: Multivit, Therapeutic 1 TAB PO SCH (08:43)
[2021-03-20] MEDS: Fish Oil 1,000 MG CAP PO SCH (08:43)
[2021-03-20] MEDS: Nystatin Powder 15 GM BOT TOP SCH (08:44)
[2021-03-20] MEDS: Clopidogrel Bisulfate 75 MG TAB PO SCH (08:44)
[2021-03-20] MEDS: Levothyroxine Sodium 125 MCG TAB PO SCH (08:44)
[2021-03-20] MEDS ORDERED: Cholecalciferol 1,000 UNITS (25 MCG) TAB PO SCH (09:00)
[2021-03-20] MEDS: Sodium Chloride 0.9% 1,000 ML IV SCH (12:26)
[2021-03-20 12:32] VITALS: BP 132/66; TEMP 97.7
[2021-03-20] MEDS: Fluticasone Propionate Nasal Spray 16 gm Bottle NASAL SCH (14:50)
== END 2021-03-20 15:45 | DRG 872 ==
LOC: CSHERS 15:23 → CSHTELE 21:40 → UNDOADMOB 23:16 → CSHTELE 23:16 → INTOOBSV 23:16 → OBSVTOIN 03-06 17:02
PROVIDERS: ADMIT Family Medicine; ATTEND Hospitalist
PROC: 02HV33Z Insertion of Infusion Device into Superior Vena Cava, Percutaneous Approach (ICD-10-PCS; principal; 2021-03-09)
PROC: B548ZZA Ultrasonography of Superior Vena Cava, Guidance (ICD-10-PCS; 2021-03-09)
DX: A41.51 Sepsis due to Escherichia coli [E. coli] (principal); S22.080A Wedge compression fracture of T11-T12 vertebra, initial encounter for closed fracture; I13.0 Hypertensive heart and chronic kidney disease with heart failure and stage 1 through stage 4 chronic kidney disease, or unspecified chronic kidney disease; I50.32 Chronic diastolic (congestive) heart failure; N39.0 Urinary tract infection, site not specified; N17.9 Acute kidney failure, unspecified; E87.0 Hyperosmolality and hypernatremia; E87.2 Acidosis; N18.4 Chronic kidney disease, stage 4 (severe); Z20.822 Contact with and (suspected) exposure to COVID-19; W19.XXXA Unspecified fall, initial encounter; I25.10 Atherosclerotic heart disease of native coronary artery without angina pectoris; E78.5 Hyperlipidemia, unspecified; M19.90 Unspecified osteoarthritis, unspecified site; K21.9 Gastro-esophageal reflux disease without esophagitis; E03.9 Hypothyroidism, unspecified; H54.8 Legal blindness, as defined in USA; G47.33 Obstructive sleep apnea (adult) (pediatric); I44.7 Left bundle-branch block, unspecified; Z90.49 Acquired absence of other specified parts of digestive tract; Z87.891 Personal history of nicotine dependence; Z95.5 Presence of coronary angioplasty implant and graft; Z98.42 Cataract extraction status, left eye; Z98.41 Cataract extraction status, right eye; Z90.710 Acquired absence of both cervix and uterus; Z83.3 Family history of diabetes mellitus; Z82.3 Family history of stroke; Z86.73 Personal history of transient ischemic attack (TIA), and cerebral infarction without residual deficits; Z87.11 Personal history of peptic ulcer disease; Z85.3 Personal history of malignant neoplasm of breast; R29.6 Repeated falls; J44.9 Chronic obstructive pulmonary disease, unspecified; I16.0 Hypertensive urgency; D64.9 Anemia, unspecified; E87.5 Hyperkalemia; D63.1 Anemia in chronic kidney disease; E55.9 Vitamin D deficiency, unspecified; Z79.82 Long term (current) use of aspirin; Z79.890 Hormone replacement therapy; Z79.01 Long term (current) use of anticoagulants
CPT/HCPCS: 36415; 36416; 36569; 70450; 72170; 72195; 74176; 74181; 76770; 80048; 80053; 81001; 82306; 82570; 82728; 83540; 83550; 83605; 83735; 83970; 84100; 84156; 85025; 85610; 85730; 86704; 86705; 86706; 86707; 86803; 86850; 86900; 86901; 87040; 87077; 87086; 87149; 87186; 87340; 87350; 93975; 94640; 94660; 94760; 94762; 96372; 96374; C1751; G0378; J0360; J0692; J0696; J1650; J1956; J3475; J3490; J7050; J7120; U0002

== ENCOUNTER 2021-08-24 11:48 | Observation (INO) | payer MEDICARE, MEDICAID ==
[2021-08-24 12:51] LABS: #Eosinphils 0.1 10x3/uL (0.0-0.5); #Monocytes 0.5 10x3/uL (0.0-1.1); #Neutrophils 5.5 10x3/uL (1.5-8.4); %Basophils 0.3 % (0.0-2.0); %Eosinophils 1.9 % (0.0-6.0); %Lymphocytes 18.7 % (18.0-47.0); %Monocytes 6.5 % (0.0-10.0); %Neutrophils 72.3 % (40.0-75.0); Hemoglobin 10.5 g/dL (12.0-15.5); Mean Corpuscular HGB CONC 31.3 g/dL (32.0-36.0); Mean Corpuscular Hemoglobin 26.8 pg (27.0-33.0); Mean Corpuscular Volume 85.5 fl (81.6-98.3); Mean Platelet Volume 9.8 fl (7.4-10.4); Platelet Count 202 10x3/uL (150-450); RBC Distribution Width 16.9 % (11.5-14.5); Red Blood Cell (RBC) Count 3.92 10x6/uL (3.90-5.03); White Blood Cell (WBC) Count 7.5 10x3/uL (3.5-10.5)
[2021-08-24 13:17] LABS: Platelet Morphology Comment Appears Adequate; RBC Morphology Normal
[2021-08-24 14:00] LABS: SARS-CoV-2 NAA Rapid Test Not Detected (NotDetected)
[2021-08-24 14:48] LABS: ALT (SGPT) 12 U/L (8-55); AST (SGOT) 16 U/L (5-34); Albumin 3.6 g/dL (3.4-4.8); Alkaline Phosphatase 85 U/L (40-110); Anion Gap 12 mmol/L (10-20); BUN (Urea Nitrogen) 19 mg/dL (9.8-20.1); Bilirubin, Total 0.3 mg/dL (0.2-1.2); Calc. Creatinine Clearance 0 mL/min (70-130); Calcium 8.8 mg/dL (7.8-10.44); Carbon Dioxide 31 mmol/L (23-31); Chloride 100 mmol/L (98-107); Globulin 3.4 g/dL (2.4-3.5); Glucose 112 mg/dL (83-110); Potassium 4.2 mmol/L (3.5-5.1); Sodium 139 mmol/L (136-145)
[2021-08-24] MEDS ORDERED: Acetaminophen 325 MG TAB PO PRN (15:23)
[2021-08-24] MEDS ORDERED: Acetaminophen 650 MG Suppository PR PRN (15:23)
[2021-08-24] MEDS ORDERED: Enoxaparin Sodium 80 MG/0.8 ML SYRINGE SC SCH ×3 (15:30→20:15)
[2021-08-24 16:00] LABS: Troponin I Less than 0.010 ng/mL (< 0.028)
[2021-08-24 19:01] LABS: Troponin I 0.011 ng/mL (< 0.028)
[2021-08-24 19:37] VITALS: BMI 27.1
[2021-08-24] MEDS: Docusate 100 MG CAP PO SCH (21:43)
[2021-08-24] MEDS: Atorvastatin Calcium 40 MG TAB PO SCH (21:43)
[2021-08-24] MEDS: Nebivolol HCl 5 MG TAB PO SCH (21:43)
[2021-08-25 05:31] LABS: #Eosinphils 0.2 10x3/uL (0.0-0.5); #Monocytes 0.4 10x3/uL (0.0-1.1); #Neutrophils 2.8 10x3/uL (1.5-8.4); %Basophils 0.4 % (0.0-2.0); %Eosinophils 3.3 % (0.0-6.0); %Lymphocytes 38.3 % (18.0-47.0); %Monocytes 6.4 % (0.0-10.0); %Neutrophils 51.4 % (40.0-75.0); Hemoglobin 9.7 g/dL (12.0-15.5); Mean Corpuscular HGB CONC 32.1 g/dL (32.0-36.0); Mean Corpuscular Volume 84.1 fl (81.6-98.3); Mean Platelet Volume 9.8 fl (7.4-10.4); Platelet Count 202 10x3/uL (150-450); RBC Distribution Width 16.6 % (11.5-14.5); Red Blood Cell (RBC) Count 3.59 10x6/uL (3.90-5.03); White Blood Cell (WBC) Count 5.5 10x3/uL (3.5-10.5)
[2021-08-25 05:41] LABS: Anion Gap 14 mmol/L (10-20); BUN (Urea Nitrogen) 18 mg/dL (9.8-20.1); Calc. Creatinine Clearance 56 mL/min (70-130); Calcium 8.6 mg/dL (7.8-10.44); Carbon Dioxide 26 mmol/L (23-31); Chloride 103 mmol/L (98-107); Glucose 95 mg/dL (83-110); Potassium 3.5 mmol/L (3.5-5.1); Sodium 139 mmol/L (136-145)
[2021-08-25] MEDS ORDERED: Levothyroxine Sodium 125 MCG TAB PO SCH (06:00)
[2021-08-25] MEDS ORDERED: hydrALAZINE 20 MG/ML VIAL SLOW IVP SCH ×2 (06:45)
[2021-08-25] MEDS ORDERED: Enoxaparin Sodium 80 MG/0.8 ML SYRINGE SC SCH (09:00)
[2021-08-25] MEDS: Docusate 100 MG CAP PO SCH ×2 (09:54→20:45)
[2021-08-25] MEDS: Aspirin 81 mg Enteric Coated Tablet PO SCH (09:54)
[2021-08-25] MEDS: Clopidogrel Bisulfate 75 MG TAB PO SCH (09:54)
[2021-08-25] MEDS ORDERED: Nitroglycerin 0.4 MG TAB (25 Tab Bottle) SL PRN (10:38)
[2021-08-25] MEDS ORDERED: Nitroglycerin 2% Ointment 1 INCH/1 GM Packet TOP SCH ×2 (12:00)
[2021-08-25] MEDS ORDERED: Lidocaine 1% (PF) 30 ML VIAL ONE (15:04)
[2021-08-25] MEDS ORDERED: Heparin 10,000 UNITS/ 10 ML VIAL ONE (15:04)
[2021-08-25] MEDS ORDERED: Nitroglycerin 50 MG/250 ML BOT 0 ML ONE (15:04)
[2021-08-25] MEDS ORDERED: Adenosine 6 MG/2 ML VIAL ONE (15:04)
[2021-08-25] MEDS ORDERED: Fentanyl 100 MCG/2 ML VIAL ONE (15:43)
[2021-08-25] MEDS ORDERED: Midazolam HCl 2 mg/2 ml Vial ONE ×2 (15:44→16:19)
[2021-08-25] MEDS ORDERED: Bivalirudin 250 MG VIAL ONE (16:10)
[2021-08-25] MEDS ORDERED: TICAGRELOR 90 MG TABLET ONE (16:16)
[2021-08-25] MEDS ORDERED: Labetalol HCl 100 MG/20 ML VIAL ONE (16:22)
[2021-08-25] MEDS: Atorvastatin Calcium 40 MG TAB PO SCH (20:45)
[2021-08-25] MEDS: Nebivolol HCl 5 MG TAB PO SCH (20:45)
[2021-08-25] MEDS: Nitroglycerin 2% Ointment 1 INCH/1 GM Packet TOP SCH (20:45)
[2021-08-26 04:55] LABS: #Eosinphils 0.1 10x3/uL (0.0-0.5); #Monocytes 0.5 10x3/uL (0.0-1.1); #Neutrophils 5.1 10x3/uL (1.5-8.4); %Basophils 0.3 % (0.0-2.0); %Eosinophils 1.8 % (0.0-6.0); %Monocytes 6.5 % (0.0-10.0); %Neutrophils 72.3 % (40.0-75.0); Hemoglobin 10.3 g/dL (12.0-15.5); Mean Corpuscular HGB CONC 32.3 g/dL (32.0-36.0); Mean Corpuscular Hemoglobin 27.4 pg (27.0-33.0); Mean Corpuscular Volume 84.8 fl (81.6-98.3); Mean Platelet Volume 9.8 fl (7.4-10.4); Platelet Count 213 10x3/uL (150-450); RBC Distribution Width 17.1 % (11.5-14.5); Red Blood Cell (RBC) Count 3.76 10x6/uL (3.90-5.03)
[2021-08-26 05:01] LABS: ALT (SGPT) 11 U/L (8-55); AST (SGOT) 13 U/L (5-34); Albumin 3.4 g/dL (3.4-4.8); Alkaline Phosphatase 75 U/L (40-110); Anion Gap 15 mmol/L (10-20); BUN (Urea Nitrogen) 14 mg/dL (9.8-20.1); Bilirubin, Total 0.4 mg/dL (0.2-1.2); Calc. Creatinine Clearance 55 mL/min (70-130); Calcium 8.7 mg/dL (7.8-10.44); Carbon Dioxide 23 mmol/L (23-31); Chloride 105 mmol/L (98-107); Globulin 3.3 g/dL (2.4-3.5); Glucose 93 mg/dL (83-110); Potassium 3.8 mmol/L (3.5-5.1); Protein, Total 6.7 g/dL (5.8-8.1); Sodium 139 mmol/L (136-145)
[2021-08-26] MEDS: Sodium Chloride 0.9% 1,000 ML IV SCH ×2 (05:29→05:42)
[2021-08-26] MEDS ORDERED: Levothyroxine Sodium 112 MCG TAB PO SCH (06:00)
[2021-08-26] MEDS ORDERED: Magnesium 2 GM/50 ML 2 GM in Premix Bag 1 BAG IVPB SCH (09:30)
[2021-08-26] MEDS: Docusate 100 MG CAP PO SCH (09:31)
[2021-08-26] MEDS: Aspirin 81 mg Enteric Coated Tablet PO SCH (09:31)
[2021-08-26] MEDS: Clopidogrel Bisulfate 75 MG TAB PO SCH (09:32)
[2021-08-26] MEDS: Nitroglycerin 2% Ointment 1 INCH/1 GM Packet TOP SCH (09:32)
[2021-08-26 10:05] LABS: ALT (SGPT) 10 U/L (8-55); AST (SGOT) 13 U/L (5-34); Albumin 3.3 g/dL (3.4-4.8); Alkaline Phosphatase 71 U/L (40-110); Anion Gap 15 mmol/L (10-20); BUN (Urea Nitrogen) 13 mg/dL (9.8-20.1); Bilirubin, Total 0.5 mg/dL (0.2-1.2); Calc. Creatinine Clearance 52 mL/min (70-130); Calcium 8.6 mg/dL (7.8-10.44); Carbon Dioxide 22 mmol/L (23-31); Chloride 107 mmol/L (98-107); Globulin 3.2 g/dL (2.4-3.5); Glucose 108 mg/dL (83-110); Magnesium 1.9 mg/dL (1.6-2.6); Potassium 4.1 mmol/L (3.5-5.1); Protein, Total 6.5 g/dL (5.8-8.1); Sodium 140 mmol/L (136-145)
[2021-08-26 18:18] VITALS: BP 162/68; TEMP 99.4
== END 2021-08-26 18:01 ==
LOC: CSHERS 11:48 → CSHTELE 18:33
PROVIDERS: ADMIT Internal Medicine; ATTEND Physician Assistant
DX: T82.855A Stenosis of coronary artery stent, initial encounter (principal); I25.110 Atherosclerotic heart disease of native coronary artery with unstable angina pectoris; Z95.5 Presence of coronary angioplasty implant and graft; I10 Essential (primary) hypertension; E78.5 Hyperlipidemia, unspecified; E03.9 Hypothyroidism, unspecified; Z85.3 Personal history of malignant neoplasm of breast; K21.9 Gastro-esophageal reflux disease without esophagitis; Z79.02 Long term (current) use of antithrombotics/antiplatelets; Z79.899 Other long term (current) drug therapy; Z87.891 Personal history of nicotine dependence; I65.29 Occlusion and stenosis of unspecified carotid artery; Z20.822 Contact with and (suspected) exposure to COVID-19
CPT/HCPCS: 71045; 80048; 80053 ×2; 83735; 83880; 84484 ×3; 85025 ×2; 93005 ×2; 93306; 93458; 94760; 99285; C1725; C1874 ×2; C9600; U0002; 36415; 84443; 92928; 93010; 96372; 96374; 96375; 99152; 99153; G0378; J0153; J0360; J0583; J1644; J1650; J2001; J2250; J3010; J3475; J7050

== ENCOUNTER 2025-03-24 13:38 | Inpatient (IN) | payer MEDICARE, MEDICAID ==
[~2025-03-24 13:38] MED LIST: Iopamidol 370 76% 100 ML VIAL ONE
[2025-03-24] MEDS ORDERED: NOREPINEPHRINE 8 MG/250 ML-D5W 250 ML ONE (14:37)
[2025-03-24] MEDS ORDERED: Ondansetron PF 4 MG/2 ML Vial ONE (14:43)
[2025-03-24] MEDS ORDERED: Albuterol 2.5 MG (3 mL) NEB ONE (14:52)
[2025-03-24 14:55] LABS: ALT (SGPT) 13 U/L (Less than 34); AST (SGOT) 16 U/L (11-34); Albumin 3.5 g/dL (3.1-4.5); Alkaline Phosphatase 63 U/L (40-110); Anion Gap 17 mmol/L (10-20); BUN (Urea Nitrogen) 29 mg/dL (9.8-20.1); Bilirubin, Total 0.3 mg/dL (0.3-1.2); Calc. Creatinine Clearance 0 mL/min (70-130); Calcium 8.3 mg/dL (7.8-10.44); Carbon Dioxide 22 mmol/L (23-31); Chloride 108 mmol/L (98-107); Globulin 3.8 g/dL (2.4-3.5); Glucose 149 mg/dL (83-110); Potassium 3.8 mmol/L (3.5-5.1); Sodium 143 mmol/L (136-145)
[2025-03-24 15:01] LABS: Hematocrit 32.4 % (34.9-44.5); Hemoglobin 10.3 g/dL (12.0-15.5); Mean Corpuscular Hemoglobin 29.9 pg (27.0-33.0); Mean Corpuscular Volume 93.9 fL (81.6-98.3); Platelet Count 146 10x3/uL (150-450); Red Blood Cell (RBC) Count 3.45 10x6/uL (3.90-5.03); White Blood Cell (WBC) Count 7.01 10x3/uL (3.5-10.5)
[2025-03-24 15:14] LABS: Glucose, Urine (Dipstick) Normal (Negative); Leukocyte 500 (Negative); Protein, Urine (Dipstick) 30 mg/dl (Neg-Trace); Specific Gravity, Urine 1.010 (1.005-1.030)
[2025-03-24 15:21] LABS: #Basophils Less than 0.03 10x3/uL (0.0-0.2); #Eosinophils Less than 0.03 10x3/uL (0.0-0.5); #Monocytes 0.49 10x3/uL (0.0-1.1); #Neutrophils 4.90 10x3/uL (1.5-8.4); %Basophils 0.0 % (0.0-2.0); %Eosinophils 0.0 % (0.0-6.0); %Lymphocytes 21.8 % (18.0-47.0); %Monocytes 7.1 % (0.0-10.0); %Neutrophils 70.5 % (40.0-75.0)
[2025-03-24 15:36] LABS: CAUTI Indications for Culture Pelvic or flank pain
[2025-03-24 15:37] LABS: Bacteria/HPF 4+ HPF (None Seen)
[2025-03-24 15:38] LABS: Mucous/LPF 1+ LPF (<2+)
[2025-03-24 15:39] LABS: Urine Culture Reflex Yes Yes
[2025-03-24 17:03] LABS: Actual Bicarbonate (HCO3v) 22.6 mEq/L (22-28); Analyzer IN Cardio CS ER; Base Excess -1.8 mEq/L (-2 - +2); Calcium, Ionized (venous) 1.02 mmol/L (1.16-1.32); Chloride (VBG) 108 mmol/L (98-106); Hematocrit-VBG 34 % (36.0-47.0); Hemoglobin (Hb) 11.4 g/dL (11.7-16.1); Potassium (VBG) 3.92 mmol/L (3.70-5.30); Puncture Site Other Site; RapidComm Collect By LAB; Sodium 143 mmol/L (133-146)
[2025-03-24] MEDS ORDERED: Ondansetron PF 4 MG/2 ML Vial IVP PRN (18:18)
[2025-03-24] MEDS ORDERED: Electrolyte Replacement Protocol 1 EACH FS PRN (18:30)
[2025-03-24 18:48] VITALS: BMI 32.2
[2025-03-24] MEDS: NOREPINEPHRINE 8 MG/250 ML-D5W 250 ML IVPB SCH (19:00)
[2025-03-24] MEDS: VANCOMYCIN 2 GRAM/400 ML BAG 2 GM in Premix 1 BAG IVPB SCH (19:18)
[2025-03-24] MEDS: Azithromycin 500 MG in Sodium Chloride 0.9% 250 ML 250 ML IVPB SCH (22:45)
[2025-03-25 02:28] LABS: #Basophils Less than 0.03 10x3/uL (0.0-0.2); #Eosinophils Less than 0.03 10x3/uL (0.0-0.5); #Monocytes 0.07 10x3/uL (0.0-1.1); #Neutrophils 3.64 10x3/uL (1.5-8.4); %Basophils 0.0 % (0.0-2.0); %Eosinophils 0.0 % (0.0-6.0); %Lymphocytes 12.2 % (18.0-47.0); %Monocytes 1.6 % (0.0-10.0); %Neutrophils 85.7 % (40.0-75.0); Hematocrit 32.8 % (34.9-44.5); Hemoglobin 10.1 g/dL (12.0-15.5); Mean Corpuscular Hemoglobin 29.6 pg (27.0-33.0); Mean Corpuscular Volume 96.2 fL (81.6-98.3); Platelet Count 123 10x3/uL (150-450); Red Blood Cell (RBC) Count 3.41 10x6/uL (3.90-5.03); White Blood Cell (WBC) Count 4.25 10x3/uL (3.5-10.5)
[2025-03-25 02:33] LABS: Vancomycin, Random 21.8 ug/mL (See Comment)
[2025-03-25 02:35] LABS: Anion Gap 18 mmol/L (10-20); BUN (Urea Nitrogen) 25 mg/dL (9.8-20.1); Calc. Creatinine Clearance 40 mL/min (70-130); Calcium 7.6 mg/dL (7.8-10.44); Carbon Dioxide 17 mmol/L (23-31); Chloride 112 mmol/L (98-107); Glucose 337 mg/dL (83-110); Magnesium 1.2 mg/dL (1.6-2.6); Potassium 4.2 mmol/L (3.5-5.1); Sodium 143 mmol/L (136-145)
[2025-03-25] MEDS ORDERED: Glucagon 1 MG/ML KIT IM PRN (03:01)
[2025-03-25] MEDS: Magnesium 2 GM/50 ML BAG (IN WATER) ONE (03:27)
[2025-03-25] MEDS: Magnesium 2 GM/50 ML(in water) 2 GM in Premix 1 BAG IVPB SCH (03:29)
[2025-03-25 03:33] LABS: ALT (SGPT) 19 U/L (Less than 34); AST (SGOT) 21 U/L (11-34); Albumin 3.2 g/dL (3.1-4.5); Alkaline Phosphatase 52 U/L (40-110); Bilirubin, Direct 0.1 mg/dL (0.1-0.3); Bilirubin, Total 0.2 mg/dL (0.3-1.2)
[2025-03-25 03:38] LABS: Actual Bicarbonate (HCO3v) 14.9 mEq/L (22-28); Analyzer IN Cardio CS ER; Base Excess -9.3 mEq/L (-2 - +2); Calcium, Ionized (venous) 0.96 mmol/L (1.16-1.32); Chloride (VBG) 111 mmol/L (98-106); Hematocrit-VBG 32 % (36.0-47.0); Hemoglobin (Hb) 11.0 g/dL (11.7-16.1); Potassium (VBG) 4.20 mmol/L (3.70-5.30); Puncture Site Left Radial artery; RapidComm Collect By lab; Sodium 143 mmol/L (133-146)
[2025-03-25 03:44] LABS: Magnesium 1.2 mg/dL (1.6-2.6)
[2025-03-25] MEDS ORDERED: Magnesium 2 GM/50 ML(in water) 2 GM in Premix 1 BAG IVPB SCH (04:00)
[2025-03-25] MEDS: Acetaminophen 325 MG TAB PO PRN (10:07)
[2025-03-25] MEDS: Pregabalin 50 MG CAP PO SCH (10:07)
[2025-03-25] MEDS: Enoxaparin 30 MG (0.3 mL) SYRINGE SC SCH (10:07)
[2025-03-25] MEDS: Benzocaine/Menthol 1 LOZ LOZ PO SCH (12:56)
[2025-03-25] MEDS: Vancomycin 1 GM in Sodium Chloride 0.9% 250 ML 250 ML IVPB SCH (15:36)
[2025-03-25 16:05] LABS: Albumin 2.9 g/dL (3.1-4.5); Calcium 8.2 mg/dL (7.8-10.44); Magnesium 2.5 mg/dL (1.6-2.6)
[2025-03-25] MEDS: levETIRAcetam 500 MG (5 mL) VIAL SLOW IVP SCH ×2 (18:01→19:43)
[2025-03-25] MEDS: levETIRAcetam in NS 500 MG in Premix 1 BAG IVPB SCH (19:40)
[2025-03-25] MEDS: Benzocaine/Menthol 1 LOZ LOZ PO PRN (23:22)
[2025-03-26] MEDS ORDERED: guaiFENesin/Codeine Phosphate 100 mg/10 mg 5 ml UD Cup PO PRN (00:55)
[2025-03-26] MEDS: Benzonatate 100 MG CAP PO PRN (01:03)
[2025-03-26 04:17] LABS: #Basophils Less than 0.03 10x3/uL (0.0-0.2); #Eosinophils Less than 0.03 10x3/uL (0.0-0.5); #Monocytes 0.39 10x3/uL (0.0-1.1); #Neutrophils 7.66 10x3/uL (1.5-8.4); %Basophils 0.1 % (0.0-2.0); %Eosinophils 0.1 % (0.0-6.0); %Lymphocytes 18.4 % (18.0-47.0); %Monocytes 3.9 % (0.0-10.0); %Neutrophils 77.1 % (40.0-75.0); Hematocrit 29.3 % (34.9-44.5); Hemoglobin 8.9 g/dL (12.0-15.5); Mean Corpuscular Hemoglobin 29.2 pg (27.0-33.0); Mean Corpuscular Volume 96.1 fL (81.6-98.3); Platelet Count 109 10x3/uL (150-450); Red Blood Cell (RBC) Count 3.05 10x6/uL (3.90-5.03); White Blood Cell (WBC) Count 9.94 10x3/uL (3.5-10.5)
[2025-03-26 04:22] LABS: Anion Gap 13 mmol/L (10-20); BUN (Urea Nitrogen) 22 mg/dL (9.8-20.1); Calc. Creatinine Clearance 46 mL/min (70-130); Calcium 8.0 mg/dL (7.8-10.44); Carbon Dioxide 19 mmol/L (23-31); Chloride 117 mmol/L (98-107); Glucose 103 mg/dL (83-110); Potassium 4.2 mmol/L (3.5-5.1); Sodium 145 mmol/L (136-145)
[2025-03-26 04:23] LABS: Vancomycin, Random 20.5 ug/mL (See Comment)
[2025-03-26] MEDS: levETIRAcetam 500 MG (5 mL) VIAL SLOW IVP SCH (05:59)
[2025-03-26] MEDS: Enoxaparin 40 MG (0.4 mL) SYRINGE SC SCH (08:53)
[2025-03-26] MEDS: Dextrose 50% Abboject 50 ML SYRINGE SLOW IVP PRN (12:30)
[2025-03-27 03:45] LABS: #Basophils Less than 0.03 10x3/uL (0.0-0.2); #Eosinophils 0.08 10x3/uL (0.0-0.5); #Monocytes 0.36 10x3/uL (0.0-1.1); #Neutrophils 4.38 10x3/uL (1.5-8.4); %Basophils 0.2 % (0.0-2.0); %Eosinophils 1.3 % (0.0-6.0); %Lymphocytes 21.6 % (18.0-47.0); %Monocytes 5.8 % (0.0-10.0); %Neutrophils 70.8 % (40.0-75.0); Hematocrit 26.4 % (34.9-44.5); Hemoglobin 8.3 g/dL (12.0-15.5); Mean Corpuscular Hemoglobin 30.0 pg (27.0-33.0); Mean Corpuscular Volume 95.3 fL (81.6-98.3); Platelet Count 124 10x3/uL (150-450); Red Blood Cell (RBC) Count 2.77 10x6/uL (3.90-5.03); White Blood Cell (WBC) Count 6.19 10x3/uL (3.5-10.5)
[2025-03-27 04:01] LABS: Anion Gap 11 mmol/L (10-20); BUN (Urea Nitrogen) 19 mg/dL (9.8-20.1); Calc. Creatinine Clearance 50 mL/min (70-130); Calcium 8.1 mg/dL (7.8-10.44); Carbon Dioxide 21 mmol/L (23-31); Chloride 115 mmol/L (98-107); Glucose 106 mg/dL (83-110); Potassium 3.8 mmol/L (3.5-5.1); Sodium 143 mmol/L (136-145)
[2025-03-27 09:13] LABS: ALV-art Gradient 98.315 mmHg (0-20); Actual Bicarbonate (HCO3a) 23.5 mEq/L (22-28); Analyzer IN Cardio CS ICU; Base Excess (BEa) -0.7 mEq/L (-2.0 to +3.0); CO2 Tension 36.9 mmHg (35.0-45.0); Calcium, Ionized (arterial) 1.17 mmol/L (1.12-1.30); Hematocrit-ABG 29 % (36.0-47.0); Hemoglobin (Hb) 9.7 g/dL (12.0-16.0); O2 Tension (PaO2), arterial 55.2 mmHg (> 60.0); Potassium - ABG Lab 3.76 mmol/L (3.70-5.30); Puncture Site Right Brachial art; pH, Arterial 7.422 (7.35-7.45)
[2025-03-27 12:27] LABS: Hematocrit 27.5 % (34.9-44.5); Hemoglobin 8.6 g/dL (12.0-15.5)
[2025-03-27] MEDS: Calcium Carbonate 600 MG + Vit D TAB PO SCH (21:20)
[2025-03-27] MEDS: levETIRAcetam 500 MG TAB PO SCH (21:20)
[2025-03-28 04:13] LABS: Hematocrit 31.3 % (34.9-44.5); Hemoglobin 9.7 g/dL (12.0-15.5); Mean Corpuscular Hemoglobin 29.6 pg (27.0-33.0); Mean Corpuscular Volume 95.4 fL (81.6-98.3); Platelet Count 120 10x3/uL (150-450); Red Blood Cell (RBC) Count 3.28 10x6/uL (3.90-5.03); White Blood Cell (WBC) Count 5.68 10x3/uL (3.5-10.5)
[2025-03-28 04:14] LABS: #Basophils Less than 0.03 10x3/uL (0.0-0.2); #Eosinophils 0.23 10x3/uL (0.0-0.5); #Monocytes 0.33 10x3/uL (0.0-1.1); #Neutrophils 3.88 10x3/uL (1.5-8.4); %Basophils 0.2 % (0.0-2.0); %Eosinophils 4.0 % (0.0-6.0); %Lymphocytes 21.3 % (18.0-47.0); %Monocytes 5.8 % (0.0-10.0); %Neutrophils 68.3 % (40.0-75.0)
[2025-03-28 04:15] LABS: Anion Gap 12 mmol/L (10-20); BUN (Urea Nitrogen) 15 mg/dL (9.8-20.1); Calc. Creatinine Clearance 58 mL/min (70-130); Calcium 8.6 mg/dL (7.8-10.44); Carbon Dioxide 21 mmol/L (23-31); Chloride 115 mmol/L (98-107); Glucose 94 mg/dL (83-110); Potassium 3.7 mmol/L (3.5-5.1); Sodium 144 mmol/L (136-145)
[2025-03-28] MEDS ORDERED: hydrALAZINE 20 MG/ML VIAL SLOW IVP PRN (04:20)
[2025-03-28] MEDS: hydrALAZINE 20 MG/ML VIAL SLOW IVP SCH (05:12)
[2025-03-28] MEDS ORDERED: Non-Formulary Medication 1 EACH (Tiotropium Bromide 4 GM Inhaler) IH SCH (09:00)
[2025-03-28] MEDS: Multivitamin W/ Minerals 1 TAB PO SCH (09:46)
[2025-03-28] MEDS: Magnesium Oxide 400 MG TAB PO SCH (09:47)
[2025-03-28] MEDS: Isosorbide Mononitrate 60 MG ER.TAB PO SCH (21:10)
[2025-03-28] MEDS: Guaifenesin DM 100-10/5 ML UDCUP PO PRN (22:37)
[2025-03-29] MEDS: Calcitriol 0.25 MCG CAP PO SCH (10:05)
[2025-03-29] MEDS: Lisinopril 10 MG TAB PO SCH ×2 (15:49→21:25)
[2025-03-30 07:32] LABS: #Basophils Less than 0.03 10x3/uL (0.0-0.2); #Eosinophils 0.44 10x3/uL (0.0-0.5); #Monocytes 0.39 10x3/uL (0.0-1.1); #Neutrophils 3.95 10x3/uL (1.5-8.4); %Basophils 0.2 % (0.0-2.0); %Eosinophils 7.4 % (0.0-6.0); %Lymphocytes 19.4 % (18.0-47.0); %Monocytes 6.5 % (0.0-10.0); %Neutrophils 66.2 % (40.0-75.0); Hematocrit 27.5 % (34.9-44.5); Hemoglobin 8.6 g/dL (12.0-15.5); Mean Corpuscular Hemoglobin 29.1 pg (27.0-33.0); Mean Corpuscular Volume 92.9 fL (81.6-98.3); Platelet Count 169 10x3/uL (150-450); Red Blood Cell (RBC) Count 2.96 10x6/uL (3.90-5.03); White Blood Cell (WBC) Count 5.97 10x3/uL (3.5-10.5)
[2025-03-30 07:49] LABS: Anion Gap 16 mmol/L (10-20); BUN (Urea Nitrogen) 10 mg/dL (9.8-20.1); Calc. Creatinine Clearance 67 mL/min (70-130); Calcium 9.7 mg/dL (7.8-10.44); Carbon Dioxide 23 mmol/L (23-31); Chloride 108 mmol/L (98-107); Glucose 99 mg/dL (83-110); Potassium 3.9 mmol/L (3.5-5.1); Sodium 143 mmol/L (136-145)
[2025-03-30 18:37] VITALS: BP 137/71; TEMP 97.6
== END 2025-03-30 19:46 | DRG 871 ==
LOC: CSHERS 13:38 → CSHICU 16:57 → CSHTELE 03-28 11:21
PROVIDERS: ADMIT Internal Medicine; ATTEND Internal Medicine
PROC: 3E03329 Introduction of Other Anti-infective into Peripheral Vein, Percutaneous Approach (ICD-10-PCS; principal; 2025-03-24)
PROC: 3E033XZ Introduction of Vasopressor into Peripheral Vein, Percutaneous Approach (ICD-10-PCS; 2025-03-24)
PROC: 4A133R1 Monitoring of Arterial Saturation, Peripheral, Percutaneous Approach (ICD-10-PCS; 2025-03-24)
PROC: 5A09357 Assistance with Respiratory Ventilation, Less than 24 Consecutive Hours, Continuous Positive Airway Pressure (ICD-10-PCS; 2025-03-24)
PROC: 02HV33Z Insertion of Infusion Device into Superior Vena Cava, Percutaneous Approach (ICD-10-PCS; 2025-03-24)
PROC: 4A02X4A Measurement of Cardiac Electrical Activity, Guidance, External Approach (ICD-10-PCS; 2025-03-24)
PROC: 05HY33Z Insertion of Infusion Device into Upper Vein, Percutaneous Approach (ICD-10-PCS; 2025-03-24)
PROC: XX20X89 Monitoring of Brain Electrical Activity, Computer-aided Detection and Notification, New Technology Group 9 (ICD-10-PCS; 2025-03-25)
PROC: 05HY33Z Insertion of Infusion Device into Upper Vein, Percutaneous Approach (ICD-10-PCS; 2025-03-26)
DX: A41.51 Sepsis due to Escherichia coli [E. coli] (principal); J18.9 Pneumonia, unspecified organism; J96.01 Acute respiratory failure with hypoxia; R65.21 Severe sepsis with septic shock; I13.0 Hypertensive heart and chronic kidney disease with heart failure and stage 1 through stage 4 chronic kidney disease, or unspecified chronic kidney disease; N39.0 Urinary tract infection, site not specified; J44.1 Chronic obstructive pulmonary disease with (acute) exacerbation; I42.9 Cardiomyopathy, unspecified; E87.20 Acidosis, unspecified; J44.0 Chronic obstructive pulmonary disease with (acute) lower respiratory infection; Z66 Do not resuscitate; I25.10 Atherosclerotic heart disease of native coronary artery without angina pectoris; H54.8 Legal blindness, as defined in USA; I50.9 Heart failure, unspecified; E78.00 Pure hypercholesterolemia, unspecified; E87.8 Other disorders of electrolyte and fluid balance, not elsewhere classified; R56.9 Unspecified convulsions; K21.9 Gastro-esophageal reflux disease without esophagitis; N18.2 Chronic kidney disease, stage 2 (mild); E03.9 Hypothyroidism, unspecified; K59.00 Constipation, unspecified; F41.9 Anxiety disorder, unspecified; F32.A Depression, unspecified; Z96.643 Presence of artificial hip joint, bilateral; D50.9 Iron deficiency anemia, unspecified; Z98.890 Other specified postprocedural states; Z90.49 Acquired absence of other specified parts of digestive tract; Z90.710 Acquired absence of both cervix and uterus; Z88.5 Allergy status to narcotic agent; Z88.8 Allergy status to other drugs, medicaments and biological substances; Z88.1 Allergy status to other antibiotic agents; Z95.5 Presence of coronary angioplasty implant and graft; Z85.3 Personal history of malignant neoplasm of breast; Z86.73 Personal history of transient ischemic attack (TIA), and cerebral infarction without residual deficits; Z87.891 Personal history of nicotine dependence; J43.9 Emphysema, unspecified; Z90.12 Acquired absence of left breast and nipple; G47.33 Obstructive sleep apnea (adult) (pediatric); K80.50 Calculus of bile duct without cholangitis or cholecystitis without obstruction
CPT/HCPCS: 36415; 36416; 36556; 36600; 51701; 70450; 71045; 71275; 74177; 74181; 76376; 80048; 80053; 80076; 80202; 81001; 82010; 82805; 83036; 83605; 83735; 83880; 84100; 84145; 84146; 85025; 87040; 87077; 87086; 87186; 87426; 93005; 93010; 94640; 94660; 94760; 94762; 95705; 96374; 96375; 99292; J0360; J0456; J0612; J1650; J1815; J1953; J2405; J2543; J2919; J3373; J3375; J3475; J7030; J7050; J7120; J7611; J7620; J7999; Q9967